=== PATIENT | female | born 2000 | race African-American/Black ===

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

== ENCOUNTER 2021-09-12 21:39 | Emergency (ER) | payer OTHER | END 2021-09-12 22:36 | disposition home or self-care (01) | LOC: ERS 21:39 | DX: B34.9 Viral infection, unspecified (principal) | CPT/HCPCS: 99283 ==

== ENCOUNTER 2021-11-15 17:25 | Emergency (ER) | payer OTHER ==
[2021-11-15] MEDS ORDERED: Ibuprofen 800 MG TAB ONE (18:06)
[2021-11-15] MEDS ORDERED: Acetaminophen 500 MG TAB ONE (18:06)
== END 2021-11-15 18:30 | disposition home or self-care (01) ==
LOC: ERS 17:25
DX: U07.1 COVID-19 (principal); F17.290 Nicotine dependence, other tobacco product, uncomplicated
CPT/HCPCS: 99283; U0003; U0005

== ENCOUNTER 2023-04-11 15:07 | Emergency (ER) | payer OTHER ==
[2023-04-11 17:02] LABS: SARS-CoV-2 NAA Rapid Test Not Detected (NotDetected)
== END 2023-04-11 16:41 | disposition home or self-care (01) ==
LOC: ERS 15:07
DX: Z11.52 Encounter for screening for COVID-19 (principal); F17.290 Nicotine dependence, other tobacco product, uncomplicated
CPT/HCPCS: 99283

== ENCOUNTER 2024-05-05 16:05 | Emergency (ER) | payer OTHER | END 2024-05-05 16:38 | disposition home or self-care (01) | LOC: ERS 16:05 | DX: J06.9 Acute upper respiratory infection, unspecified (principal); F17.290 Nicotine dependence, other tobacco product, uncomplicated | CPT/HCPCS: 99283 ==